=== PATIENT | male | born 1990 | race Caucasian/White ===

== ENCOUNTER 2025-04-08 14:32 | Outpatient (CLI) | payer OTHER, SELFPAY ==
--- NOTE | ~2025-04-08 | US_ITS ---
EXAMINATION: US soft tissue chest, 04/08/2025 14:42 PROCESS TANK TENDER HISTORY: SUBCUTANEOUS NODULE, LT CHEST WALL Comparison: None Technique: Rocha-scale and color Doppler images were obtained. Findings: Correlating with the palpable area within the deep subcutaneous tissues there is a solid-appearing lesion measuring 2.5 x 1 x 1.4 cm, no increased flow IMPRESSION: Possible subcutaneous lipoma but incompletely evaluated, correlation with CT or MRI recommended Reviewed, dictated and finalized at location P. ESS TANK TENDER IMPRESSION: Possible subcutaneous lipoma but incompletely evaluated, correlatio n with CT or MRI recommended
--- OUTSIDE RECORDS SUMMARY | 2025-04-08 15:35 | XMS_ITS | Clinical Summary ---
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,Acute pain of right shoulder Take 1 tablet (15 mg total) by mouth daily Take 1 daily with food 30 tablet 02/24/2025 Active Active Problems No known active problems Encounters Date Type Department Care Team Description 03/05/2025 Telephone [facility] Medicine and [facility]) - [facility] [address] [place] [phone] Stephanie Vega NP MRI results 03/03/2025 4:57 PM CRUSHER LOADER EQUIPMENT OPERATOR - 03/03/2025 11:59 PM CRUSHER LOADER EQUIPMENT OPERATOR Hospital Encounter 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 (Primary Dx); Acute pain of right shoulder from Last 3 Months Social History Tobacco Use Types Packs/Day Years Used Date Smoking Tobacco: Every Day Cigarettes Smokeless Tobacco: Never Tobacco Cessation:Ready to Q uit: Not Asked; Counseling Given: Not Answered Sex and Gender Information Value Date Recorded Sex Assigned at Not on file Legal Sex Male 10:45 AM CRUSHER LOADER EQUIPMENT OPERATOR Gender Identity Not on file Sexual Orientation Not on file Last Filed Vital Signs Vital Sign Reading Time Taken Comments Blood Pressure - - Pulse - - Temperature - - Respiratory Rate - - Oxygen Saturation - - Inhaled Oxygen Concentration - - Weight 102.1 kg (225 lb) 02/24/2025 2:35 PM CRUSHER LOADER EQUIPMENT OPERATOR Height 180.3 cm (5' 11) 02/24/2025 2:35 PM CRUSHER LOADER EQUIPMENT OPERATOR Body Mass Index 31.38 02/24/2025 2:35 PM CRUSHER LOADER EQUIPMENT OPERATOR Plan of Treatment Health Maintenance Due Date Last Done Comments Depression Screening 1989 Hepatitis C Screening 1989 DTaP/Tdap/Td Vaccine (1 - Tdap) 2000 Varicella Vaccines (1 of 2 - 13+ 2-dose series) 2002 Hepatitis B Screening 09/25/2007 Regular Well Visit/Exam 18-64 09/25/2007 Pneumococcal vaccine <65 (1 of 2 - PCV) 2008 HPV Vaccines (1 - 3-dose SCDM series) 2016 Influenza Vaccine (#1) 2024 Procedures Procedure Name Priority Date/Time Associated Diagnosis Comments MRI SHOULDER RIGHT WO CONTRAST Schedule Routine, Read Routine (OP Routine) 03/03/2025 5:54 PM CRUSHER LOADER EQUIPMENT OPERATOR 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 Acute pain of right shoulder XR SHOULDER RIGHT 2 OR MORE VIEWS Schedule Routine, Read Routine (OP Routine) 02/24/2025 2:49 PM CRUSHER LOADER EQUIPMENT OPERATOR Acute pain of right shoulder from Last 3 Months Results * MRI Shoulder Right WO Contrast (03/03/2025 5:54 PM CRUSHER LOADER EQUIPMENT OPERATOR) Anatomical Region Laterality Modality Upper Extremities Right Magnetic Reson ance 03/04/2025 9:10 AM CRUSHER LOADER EQUIPMENT OPERATOR Impressions 03/04/2025 5:08 PM CRUSHER LOADER EQUIPMENT OPERATOR Right distal clavicular osteolysis Dictated by: Sage Chowdhury MD The radiology attending physician has personally reviewed this study, and had reviewed and/or edited this written report and agrees with it. Electronically signed by: Shyanne Guzman MD Narrative 03/04/2025 5:08 PM CRUSHER LOADER EQUIPMENT OPERATOR EXAMINATION: 1. MRI right shoulder without contrast HISTORY: Distal clavicular osteolysis FINDINGS: Comparison is made to radiographs dated 02/24/2025. Multiplanar, multisequence MR examination of the right shoulder was performed with a local coil. There is a type 2 acromion. The coracoacromial ligament is normal. There is no subacromial spur. There is osteolysis of the distal clavicle with associated cortical loss on the clavicular (but not the acromial) side of the joint, edema in the distal clavicle and acromion, moderate acromioclavicular joint effusion with synovitis, and edema of the acromioclavicular joint capsule. There is an 8 mm loose body in the acromioclavicular joint space. There is no subacromial subdeltoid bursitis. The rotator cuff muscle bulk is normal. The subscapularis is intact. The supraspinatus and infraspinatus cuff tendons are intact without evidence of tendinopathy or tear. On this nonarthrographic evaluation, the superior labrum and bicipital anchor appear intact. The intra-articular biceps tendon is normal. The labrum below the equator is normal. There is no glenohumeral chondrosis. There is a physiologic amount of fluid within the glenohumeral joint. No loose bodies are identified. The humeral bone marrow signal is normal. Procedure Note Griselda Guzman MD - 03/04/2025 EXAMINATION: 1. MRI right shoulder without contrast HISTORY: Distal clavicular osteolysis FINDINGS: Comparison is made to radiographs dated 02/24/2025. Multiplanar, multisequence MR examination of the right shoulder was performed with a local coil. There is a type 2 acromion. The coracoacromial ligament is normal. There is no subacromial spur. There is osteolysis of the distal clavicle with associated cortical loss on the clavicular (but not the acromial) side of the joint, edema in the distal clavicle and acromion, moderate acromioclavicular joint effusion with synovitis, and edema of the acromioclavicular joint capsule. There is an 8 mm loose body in the acromioclavicular joint space. There is no subacromial subdeltoid bursitis. The rotator cuff muscle bulk is normal. The subscapularis is intact. The supraspinatus and infraspinatus cuff tendons are intact without evidence of tendinopathy or tear. On this nonarthrographic evaluation, the superior labrum and bicipital anchor appear intact. The intra-articular biceps tendon is normal. The labrum below the equator is normal. There is no glenohumeral chondrosis. There is a physiologic amount of fluid within the glenohumeral joint. No loose bodies are identified. The humeral bone marrow signal is normal. IMPRESSION: Right distal clavicular osteolysis Dictated by: Sage Chowdhury MD The radiology attending physician has personally reviewed this study, and had reviewed and/or edited this written report and agrees with it. Electronically signed by: Shyanne Guzman MD [facility]CONOMET[facility] IMG MRI PROCED URES Final Result * XR Shoulder Right 2+ View (02/24/2025 2:49 PM CRUSHER LOADER EQUIPMENT OPERATOR) Anatomical Region Laterality Modality Upper Extremities, Shoulder Right Comp uted Radiography 02/24/2025 2:53 PM CRUSHER LOADER EQUIPMENT OPERATOR Impressions 02/24/2025 2:53 PM CRUSHER LOADER EQUIPMENT OPERATOR Right distal clavicle osteolysis. Electronically signed by: Toan Felipe M.D. Narrative 02/24/2025 2:53 PM CRUSHER LOADER EQUIPMENT OPERATOR EXAMINATION: XR SHOULDER RIGHT 2 OR MORE VIEWS HISTORY: right shoulder pain COMPARISON: None FINDINGS: Erosion of the distal clavicle suggestive of distal clavicle osteolysis. Subtle heterotopic ossification along the superior aspect of the distal clavicle. No evidence of acute fracture or dislocation. Normal glenohumeral joint space. Procedure Note Toan Felipe MD - 02/24/2025 EXAMINATION: XR SHOULDER RIGHT 2 OR MORE VIEWS HISTORY: right shoulder pain COMPARISON: None FINDINGS: Erosion of the distal clavicle suggestive of distal clavicle osteolysis. Subtle heterotopic ossification along the superior aspect of the distal clavicle. No evidence of acute fracture or dislocation. Normal glenohumeral joint space. IMPRESSION: Right distal clavicle osteolysis. Electronically signed by: Toan Felipe M.D. Stephanie James ECONOMETRICIAN IMG XR PROCEDU RES Final Result from Last 3 Months Insurance [facility] Address: [address] [address] [facility] Address: [facility] [address] [place] [address] Care Teams Purchasing Internship Relationship Specialty Start Date End Date No, Physician PCP - General 02/24/25
== END 2025-04-08 14:33 | disposition home or self-care (01) ==
PROVIDERS: PCP Internal Medicine; Visit Provider Internal Medicine
DX: R22.2 Localized swelling, mass and lump, trunk (principal)
CPT/HCPCS: 76604